=== PATIENT | female | born 1955 | race Caucasian/White ===

== ENCOUNTER 2024-01-03 08:47 | Emergency (ER) | payer BC, SELFPAY ==
[2024-01-03 08:49] VITALS: BP 180/119
[2024-01-03 09:47] VITALS: BMI 27.3
[2024-01-03 10:17] VITALS: BP 154/96
[2024-01-03 10:27] LABS: % Basophils 0.5 % (0-2); % Eosinophils 0.9 % (0-6); % Immature Granulocytes 0.2 % (0-0.5); % Lymphocytes 16.9 % (20.5-51.1); % Monocytes 8.6 % (1.7-9.3); % Neutrophils 72.9 % (42.2-75.2); Absolute Eosinophils 0.1 10^3/uL (0-0.7); Absolute Lymphocytes 1.1 10^3/uL (1.2-3.4); Absolute Monocytes 0.6 10^3/uL (0.1-0.6); Absolute Neutrophils 4.7 10^3/uL (1.4-6.5); Hematocrit 42.9 % (37.0-47.0); Hemoglobin 14.4 g/dL (12.0-16.0); Mean Corp Hgb Conc. 33.6 g/dL (33.0-37.0); Mean Corpuscular Hgb 30.3 pg (27.0-31.0); Mean Corpuscular Volume 90.1 fL (81.0-99.0); Mean Platelet Volume 9.8 fL (7.4-10.4); Nucleated Red Blood Cells % 0 %; Platelet Count 248 10^3/uL (130-400); Red Blood Cell Count 4.76 10^6/uL (4.20-5.40); Red Cell Dist. Width 12.4 % (11.5-14.5); White Blood Cell Count 6.4 10^3/uL (4.8-10.8)
[2024-01-03 10:42] LABS: ALT (SGPT) 23 U/L (0-35); AST (SGOT) 29 U/L (14-36); Albumin 4.2 g/dl (3.5-5.0); Alkaline Phosphatase 105 U/L (38-126); Blood Urea Nitrogen 14 mg/dl (7-17); Calcium 9.3 mg/dl (8.4-10.2); Carbon Dioxide 27 mmol/L (22-30); Chloride 105 mmol/L (98-107); Estimated Creatinine Clearance 68 ml/min; Glucose 106 mg/dl (70-99); Potassium 4.4 mmol/L (3.5-5.1); Sodium 135 mmol/L (135-145); Total Bilirubin 0.5 mg/dl (0.2-1.3); Total Protein 6.6 g/dl (6.3-8.2); eGFR > 60.00
--- NOTE | 2024-01-03 10:59 | ED.GENMED ---
History of Present Illness
General
Chief Complaint: Abdominal Symptoms
Time Seen by Provider: 01/03/24 09:45
Travel History
Have you had any contact with someone who has COVID-19?: No
Do you have any symptoms of coronavirus? Fever > 100 degrees, chills, cough, shortness of breath, sore throat, loss of taste or smell, muscle aches, or headache?: No
History of Present Illness
History of Present Illness:
68-year-old female presents to the emergency department for evaluation of persistent diarrhea for the past 3 weeks. States the symptoms began slightly after a course of Augmentin that she took for an upper respiratory tract infection, after the
first week of diarrhea was recommended to take probiotics by her primary care physician and notes that the diarrhea became much more severe thereafter. Over the past several days she has felt abdominal distention and bloating as well as mild
discomfort. States that over the past days she has had mucousy bowel movements. She did have outpatient labs 2 days ago that were unremarkable, stool studies are still pending at this time. No history of IBD. No hematochezia or melena
Review of Systems
Review of Systems
Allergies reviewed?: Yes
All Other Systems: ROS reviewed and negative except as documented in HPI and ROS
Phy Exam
Physical Exam
Physical Exam:
GEN: Well appearing, NAD, WDWN
Eyes: PERRLA, EOMs intact, no scleral icterus
HENT: NCAT, oral mucosa moist
Lungs: CTAB, no wheezes, rales, rhonchi, normal chest wall excursion
Cardiac: RRR, no M/R/G, no peripheral edema. Radial pulses 2+ bilat
Abdomen: S, NT, ND, NABS, no masses or hepatosplenomegaly
Neuro: AO x 3
MSK: No gross deformity or ecchymosis. No edema. No digital clubbing
Skin: No rashes, petechiae. Normal color, no pallor or jaundice.
Psych: Calm, cooperative, proper hygiene
Course
Orders/Labs/Results
Orders:
Orders
01/03/24 10:10
CT Abd/Pel (IV only)-DH only Urgent
Comment:
Reason For Exam: abd distention/diarrhea
01/03/24 10:17
Complete Blood Count/With Diff Urgent
Comprehensive Metabolic Panel Urgent
01/03/24 11:27
0.9% Sodium Chloride 1000 ml [Nss] 1,000 ml IV BOLUS
Abnormal Lab Results
01/03/24
10:17
Absolute Lymphs (auto) 1.1 L 10^3/uL
(1.2-3.4)
Lymphocytes % 16.9 L %
(20.5-51.1)
Glucose 106 H mg/dl
(70-99)
01/03/24 10:17
01/03/24 10:17
Vital Signs
Initial and Last Documented VS:
Initial Vital Signs
Temp Pulse Resp BP Pulse Ox
97.8 F 113 18 180/119 99
01/03/24 08:49 01/03/24 08:49 01/03/24 08:49 01/03/24 08:49 01/03/24 08:49
Last Documented Vital Signs
Temp Pulse Resp BP Pulse Ox
97.8 F 113 18 154/96 97
01/03/24 08:49 01/03/24 08:49 01/03/24 08:49 01/03/24 10:17 01/03/24 10:45
MDM/Problems Addressed
MDM/Problems Addressed:
Patient's imaging shows no evidence for acute pathology at this time. She has outpatient stool studies pending, no indication for redundancy. Recommend outpatient GI follow-up
*Critical Care Note
Total Time (30-74mins, 75-104mins- exclusive of procedures): Not Applicable
ED Attending Note
-
Portions of this chart may have been created with voice recognition software.� Occasional wrong word or��sound alike� substitutions may have occurred due to the inherent limitations of voice recognition software.
Discharge Plan
Departure
Patient Disposition: Home (Routine Discharge)
Date of Disposition: 01/03/24
Time of Disposition: 13:26
Patient with high blood pressure during this ER visit?: No
Discharge Problem:
Diarrhea
Instructions: Diarrhea in adolescents and adults
Prescriptions:
No Action
No Current Medications
0
Referrals:
Ida Cameron MD [Active] -
Alessandra Seals MD [Family Provider] -
Interventions
Interventions:
*Risk Screen - Suicide Last Done: 01/03/24 08:49
*General Assessment Last Done: 01/03/24 08:49
*Neglect/Abuse Screening Last Done: 01/03/24 08:49
ED- Fall Risk Assessment Last Done: 01/03/24 09:47
*ED COVID-19 Vaccine History Last Done: 01/03/24 08:49
*Nursing Disposition Last Done: 01/03/24 14:00
IG-Apdfxu-Ikfmjclddn Assessment Last Done: 01/03/24 09:47
Discharge Date and Time
Discharge Date/Time: 01/03/24 14:05
[2024-01-03] MEDS: NSS 1000 IV (11:41)
== END 2024-01-03 14:05 | disposition home or self-care (01) ==
LOC: EMR 08:47
PROVIDERS: Physician Assistant; EMERGENCY PHYSICIAN Emergency Medicine; FAMILY PHYSICIAN Internal Medicine
DX: R19.7 Diarrhea, unspecified (principal)
CPT/HCPCS: 99285; 96360; 74177; 80053; 85025; Q9967

== ENCOUNTER → 2024-01-17 12:51 | Outpatient (REF) | payer BC, SELFPAY | LOC: RAD 12:51 | PROVIDERS: ATTENDING PHYSICIAN Internal Medicine Critical Care Medicine; FAMILY PHYSICIAN Internal Medicine | DX: R91.8 Other nonspecific abnormal finding of lung field (principal) | CPT/HCPCS: 71250 ==

== ENCOUNTER → 2024-03-03 09:47 | Outpatient (REF) | payer BC, SELFPAY | LOC: HWRAD 09:47 | PROVIDERS: ATTENDING PHYSICIAN Obstetrics & Gynecology Gynecology; FAMILY PHYSICIAN Internal Medicine | DX: D25.9 Leiomyoma of uterus, unspecified (principal); M85.80 Other specified disorders of bone density and structure, unspecified site | CPT/HCPCS: 76830; 76856; 77080 ==

== ENCOUNTER 2025-01-19 23:19 | Emergency (ER) | payer BC, SELFPAY ==
[2025-01-19 23:24] VITALS: BP 166/101
--- NOTE | 2025-01-20 01:57 | ED.GENMED ---
History of Present Illness
General
Chief Complaint: Eye Problems
Time Seen by Provider: 01/20/25 01:32
History of Present Illness
History of Present Illness:
69-year-old female presenting to the emergency department for concern of retained contact lens. Patient notes that she is relatively new to wearing contact lenses. She uses daily contact lenses and this morning, put 1 in on her right eye. She had
some irritation to the eye, was not sure if the contact fell out, could not find it so put in another contact. This evening she did remove the second contact, however feels that there is something stuck in her eye. She is unable to tell if the
contact is in her eye, uses it for distance. Denies any changes in the vision. Denies additional acute medical complaints
Phy Exam
Physical Exam
Physical Exam:
General: Well-appearing, no clinical signs of dehydration, nontoxic and in no acute distress
HEENT: protecting airway, pupils equal and reactive. Scleral injection to the right eye. Extraocular movements intact. On fluorescein staining, no significant uptake. No sign of foreign body
Neck: appears supple
CV: Normal heart rate
Resp: No accessory muscle use, no increased work of breathing
Abd: no distension
Extremities: No deformities, no swelling
Neuro: alert, no focal neurologic deficit
: deferred
Rectal: deferred
Psych: Normal affect
Skin: Intact
Course
Orders/Labs/Results
Orders:
Orders
01/20/25 01:44
Fluorescein Sodium [Ful-Alicia] 1 mg .ROUTE .STK-MED ONE
Vital Signs
Initial and Last Documented VS:
Initial Vital Signs
Temp Pulse Resp BP Pulse Ox
97.8 F 85 18 166/101 99
01/19/25 23:24 01/19/25 23:24 01/19/25 23:24 01/19/25 23:24 01/19/25 23:24
Last Documented Vital Signs
Temp Pulse Resp BP Pulse Ox
97.8 F 85 18 166/101 99
01/19/25 23:24 01/19/25 23:24 01/19/25 23:24 01/19/25 23:24 01/19/25 23:24
MDM/Problems Addressed
MDM/Problems Addressed:
69-year-old female presenting for concern of retained contact lens of the right eye. Vital signs are significant for mild hypertension.
On exam patient is resting comfortably, no acute distress comfort. On multiple evaluations of the right eye, no sign of retained contact lens. No significant uptake to the cornea without strong suspicion for corneal abrasion or ulceration.
Suspect generalized eye irritation. Unable to visualize any retained contact lens. Ultimately feel stable for discharge with outpatient ophthalmologic follow-up. Will prescribe antibiotic drops for possibility of retained visualized contact lens.
Return precautions discussed and patient verbalized understanding
*Critical Care Note
Total Time (30-74mins, 75-104mins- exclusive of procedures): Not Applicable
ED Attending Note
-
Portions of this chart may have been created with voice recognition software.� Occasional wrong word or��sound alike� substitutions may have occurred due to the inherent limitations of voice recognition software.
Discharge Plan
Departure
Patient Disposition: Home (Routine Discharge)
Date of Disposition: 01/20/25
Time of Disposition: 02:12
Patient with high blood pressure during this ER visit?: Yes
Condition: Good
Discharge Problem:
Foreign body sensation, right eye
Instructions: How to Use Eye Drops, BLOOD PRESSURE
Prescriptions:
New
gentamicin 0.3 % drops
2 drp ophthalmic (eye) Q4H 5 Days Qty: 5 0RF
Referrals:
Alessandra Seals MD [Family Provider] -
Activity Restrictions/Additional Instructions:
You were seen in the emergency department for concern of foreign body to the right eye
You were found to have a normal eye exam. You were started on an antibiotic eyedrop for possible abrasion
Please follow-up closely with your primary care physician and your eye doctor.
Return to the emergency department for any worsening of your symptoms, or any development of chest pain, difficulty breathing, abdominal pain with persistent vomiting and inability to tolerate food or liquid by mouth (concern for dehydration),
weakness, headache or confusion, fever greater than 100.4, or any additional symptoms that are concerning to you.
Thank you for choosing [facility].
Interventions
Interventions:
*Risk Screen - Suicide Last Done: 01/19/25 23:24
Discharge Date and Time
Print Language: [id number]
[2025-01-20 02:14] VITALS: BP 148/82; BMI 26.6
== END 2025-01-20 02:30 | disposition home or self-care (01) ==
LOC: EMR 23:19
PROVIDERS: EMERGENCY PHYSICIAN Student in an Organized Health Care Education/Training Program; FAMILY PHYSICIAN Internal Medicine
DX: H57.8A1 Foreign body sensation, right eye (principal); H57.89 Other specified disorders of eye and adnexa; R03.0 Elevated blood-pressure reading, without diagnosis of hypertension; I10 Essential (primary) hypertension; Z88.6 Allergy status to analgesic agent; Z88.5 Allergy status to narcotic agent; Z88.2 Allergy status to sulfonamides; Z88.8 Allergy status to other drugs, medicaments and biological substances
CPT/HCPCS: 99283

== ENCOUNTER → 2025-01-29 11:15 | Outpatient (REF) | payer BC, SELFPAY | LOC: HWRAD 11:15 | PROVIDERS: ATTENDING PHYSICIAN Internal Medicine Critical Care Medicine; FAMILY PHYSICIAN Internal Medicine | DX: R91.8 Other nonspecific abnormal finding of lung field (principal) | CPT/HCPCS: 71250 ==